=== PATIENT | female | born 1995 | race Caucasian/White ===

== ENCOUNTER 2020-11-23 13:25 | Emergency (ER) | payer MEDICAID ==
[~2020-11-23] VITALS: Ht 160 cm; Wt 59.1 kg
[~2020-11-23 13:25] MED LIST: MECL-159 PO; ONDA8TAB9 PO
[2020-11-23 14:09] LABS: URINE HCG POSITIVE (NEG)
[2020-11-23 14:20] LABS: ALANINE AMINOTRANSFERASE 21 U/L (12-78); ALBUMIN/GLOBULIN RATIO 1.2 (1.1-1.5); ALKALINE PHOSPHATASE 79 IU/L (46-116); ANION GAP 10 (8-16); ASPARTATE AMINO TRANSFERASE 11 U/L (10-37); BILIRUBIN,TOTAL 0.4 MG/DL (0.1-1.0); BLOOD UREA NITROGEN 9 MG/DL (7-18); BUN/CREATININE RATIO 14.8 (6.6-38.0); CALCIUM 8.7 MG/DL (8.5-10.1); CHLORIDE 104 MMOL/L (99-107); CREATININE 0.61 MG/DL (0.40-0.90); GLUCOSE 107 MG/DL (70-104); POTASSIUM 3.8 MMOL/L (3.5-5.1); SODIUM 137 MMOL/L (135-145); TOTAL CARBON DIOXIDE 23.5 MMOL/L (24-32); TOTAL PROTEIN 7.4 G/DL (6.4-8.2); eGFR > 90 ML/MIN
[2020-11-23 14:59] LABS: BASOPHILS % (AUTO) 0.1 % (0-1); EOSINOPHILS # (AUTO) 0.1 X10'3 (0-0.9); EOSINOPHILS % (AUTO) 0.4 % (0-6); HEMOGLOBIN 14.6 g/dl (12.0-16.0); LYMPHOCYTES # (AUTO) 0.9 X10'3 (1.1-4.8); MEAN CORPUSCULAR HEMOGLOBIN 30.7 PG (27.0-31.0); MEAN CORPUSCULAR VOLUME 90.3 FL (78-98); MEAN PLATELET VOLUME 9.5 FL (7.4-10.4); MONOCYTES # (AUTO) 0.7 X10'3 (0-0.9); MONOCYTES % (AUTO) 3.2 % (2-12); NEUTROPHILS # (AUTO) 21.4 X10'3 (1.8-7.7); NEUTROPHILS % (AUTO) 92.3 % (42-75); PLATELET COUNT 300 X10'3 (140-440); RED BLOOD COUNT 4.76 X10'6 (4.20-5.60); RED CELL DISTRIBUTION WIDTH 13.4 % (11.5-14.5); WHITE BLOOD COUNT 23.2 X10'3 (4.5-11.0)
[2020-11-23] MEDS ORDERED: acetaminophen 325mg tablet PO ONE (16:30)
[2020-11-23] MEDS ORDERED: LIDOcaine Viscous 15ml cup MM PRN (16:30)
[2020-11-23] MEDS ORDERED: ondansetron 4mg rapidly disintigrating tab PO ONE (16:30)
[2020-11-23 17:15] LABS: BETA HCG,QUANTITATIVE 33184 mIU/ml
[2020-11-23 17:22] VITALS: BP 123/66
[2020-11-23] MEDS ORDERED: ONDA4TAB6 PO (18:20)
== END 2020-11-23 18:30 | disposition home or self-care (01) ==
LOC: ER 13:25
DX: O26.891 Other specified pregnancy related conditions, first trimester (principal); R10.84 Generalized abdominal pain; M54.9 Dorsalgia, unspecified; R11.0 Nausea; J02.9 Acute pharyngitis, unspecified; O21.9 Vomiting of pregnancy, unspecified; Z3A.01 Less than 8 weeks gestation of pregnancy; Z88.1 Allergy status to other antibiotic agents; Z79.899 Other long term (current) drug therapy
CPT/HCPCS: 36415; 76801; 80053; 81025; 84702; 85025; 99284